=== PATIENT | female | born 1995 | race Caucasian/White ===

== ENCOUNTER 2021-07-03 09:04 | Outpatient (REF) | payer OTHER, SELFPAY ==
--- NOTE | 2021-07-03 08:45 | PAPFT_PTH ---
PATIENT: Nick Hernandez LOC: [facility] U#:[id number] AGE/SX: 25/F ROOM: RE07/03/[address]: TUAN Nunn : 1995 BED: DIS: 07/03/2021 SPEC #: [id number] RECD: 07/03/21 13:13 STATUS: RYAN REBrett #: [id number] GUANACO: 07/03/21 08:[address]: Hannah Levine DEPT: [facility] Cytology RECD BY: Mayda Nunes ENTERED: 07/03/21 13:13 SP TYPE: PAPFT OTHR DR: Chuck Guan MD Tissues: 1 - CX/ENDOCX FOR PAP SMEARS Procedures: PAP THIN PREP/[facility] Screening Comments: [id number]
[2021-07-04 14:35] LABS: Chlamydia Result Negative (Negative); GC Result Negative (Negative)
== END 2021-07-03 09:05 | disposition home or self-care (01) ==
LOC: LBN 09:04
PROVIDERS: PCP Pediatrics; Visit Provider Nurse Practitioner Family
DX: Z11.3 Encounter for screening for infections with a predominantly sexual mode of transmission (principal); Z12.4 Encounter for screening for malignant neoplasm of cervix
CPT/HCPCS: 87491; 87591; 88142

== ENCOUNTER 2021-07-09 04:13 | Outpatient (CLI) | payer OTHER, SELFPAY ==
[2021-07-09 10:18] LABS: TSH (W/Ref FT4) 1.46 uIU/mL (0.36-3.74)
== END 2021-07-09 04:14 | disposition home or self-care (01) ==
LOC: LBO 04:14
PROVIDERS: PCP Pediatrics; Visit Provider Nurse Practitioner Family
DX: N92.5 Other specified irregular menstruation (principal)
CPT/HCPCS: 36415; 84443

== ENCOUNTER 2021-11-19 15:51 | Outpatient (REF) | payer OTHER, SELFPAY | END 2021-11-19 15:52 | disposition home or self-care (01) | LOC: LBN 15:51 | PROVIDERS: Visit Provider Physician Assistant Medical | DX: N39.0 Urinary tract infection, site not specified (principal) | CPT/HCPCS: 87077; 87086; 87186 ==